=== PATIENT | male | born 1965 | race Caucasian/White ===

== ENCOUNTER 2025-03-26 09:24 | Day surgery (SDC) | payer OTHER, SELFPAY ==
[2025-03-26 10:07] VITALS: BP 108/69; PULSE 79; RESP 16; TEMP 36.8; O2SAT 97
[2025-03-26] MEDS: LACTATED RINGERS 1,000 ML 42 ML IV (10:13)
--- NOTE | 2025-03-26 10:16 | P.HP_ITS ---
History of Present Illness
--- NOTE | 2025-03-26 10:16 | PM.HP.IH.1 ---
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 asthma, no HTN PSHX: knee = patella tendon on left, wisdom ttech, root canal, , T&A FHX: F CHF -- at 55 yo - tobacco and heavy etoh M - ovarian cancer PGF -- pancreatic cancer no IA or stroke, or DM TOB: just quit - this year etoh: not daily -- weeks inbetween recently to [facility] 02/2024 Meds Home Medications and Allergies Home Medications ?Medication ?Instructions ?Recorded ?Confirmed ?Type colchicine 0.6 mg tablet 0.6 mg PO DAILY PRN gout flare 12/02/24 12/02/24 Rx treatment #14 tabs Allergies Allergy/AdvReac Type Severity Reaction Status Date / Time No Known Drug Allergies Allergy Verified 03/26/25 10:06 Exam Vital Signs (past 8 hours): - 03/26/25 10:07 Temperature 98.2 F Pulse Rate 79 Respiratory Rate 16 Blood Pressure 108/69 Pulse Oximetry 97 Oxygen Delivery Method Room Air Oxygen Delivery Method Room Air Narrative Exam Narrative: Oropharynx free of lesions Chest clear to auscultation percussion Cardiac exam reveals no S3 or murmur Assessment & Plan Assessment & Plan narrative: Need for 1st screening colonoscopy. Risks, benefits, have been explained Time-Based Coding :: [TOTAL MINUTES] spent with patient and on the chart (including review of chart, obtaining history, exam, reviewing outside data, placing orders, documenting exam and treatment plan, and counseling patient) on [DATE]. PROFEE Self Pay Representative Document charge(s): No
--- NOTE | 2025-03-26 10:17 | P.OP.COLON_ITS ---
Operative Date/Time/Diagnoses
--- NOTE | 2025-03-26 10:17 | PM.OP.COLON ---
Operative Date/Time/Diagnoses Date of procedure: 03/26/25 Time of procedure: 11:14 Pre-op diagnosis: Screening Post-op diagnosis: same Procedure & Clinicians Study performed: Colonoscopy Same procedure(s) as scheduled: Yes Indications: First screening colonoscopy Surgeon: Niurka Stephens Anesthesia Type: Other Procedure Notes Procedure in detail: After informed consent was obtained the patient was placed in left lateral decubitus position. The video colonoscope was introduced in the rectum slowly advanced cecum. Preparation was good. On slow withdrawal mucosa was carefully examined. The scope was removed. The patient tolerated procedure well. Blood loss none Complications none Sedation mac Findings 1. Normal colonoscopy to cecum Patient should have follow-up colonoscopy in 10 years Estimated Blood Loss: 0 Complications: none
[2025-03-26 11:15] VITALS: BP 91/54; PULSE 61; RESP 15; TEMP 36.3; O2SAT 95
[2025-03-26 11:21] VITALS: BP 90/53; PULSE 60; RESP 15; TEMP 36.3; O2SAT 95
[2025-03-26 11:29] VITALS: BP 90/57; PULSE 58; RESP 15; TEMP 36.2; O2SAT 95
[2025-03-26 11:34] VITALS: BP 89/54; PULSE 67; RESP 15; TEMP 36.2; O2SAT 97
[2025-03-26 12:10] VITALS: BP 110/63; PULSE 71; RESP 14; O2SAT 98
== END 2025-03-26 12:20 | disposition home or self-care (01) ==
PROVIDERS: PCP Family Medicine; Referring Provider Family Medicine; Visit Provider Internal Medicine Gastroenterology
PROC: 0DJD8ZZ Inspection of Lower Intestinal Tract, Via Natural or Artificial Opening Endoscopic (ICD-10-PCS; CPT 45378; principal; 2025-03-26 10:30)
DX: Z12.11 Encounter for screening for malignant neoplasm of colon (principal); F17.210 Nicotine dependence, cigarettes, uncomplicated
CPT/HCPCS: 45378; J2704; J7120